=== PATIENT | female | born 1960 | race Caucasian/White ===

== ENCOUNTER → 2018-12-03 15:50 | Outpatient (CLI) | payer OTHER, SELFPAY ==
--- NOTE | 2018-12-03 | DI.US.S_ITS ---
PROCEDURE: US ABDOMEN LIMITED INDICATIONS: RIGHT UPPER QUADRANT PAIN TECHNIQUE: Real-time scanning was performed of the abdominal and retroperitoneal organs, with image documentation. COMPARISON: [facility], CT, ABDOMEN W&WO CONTRAST, 01/05/2016, 14:07. FINDINGS: Liver: The liver is 18 cm in length and demonstrates overall normal echotexture. Echogenic foci are present within the liver, the largest of which measures 3.1 x 1.5 x 3.9 cm, 1.1 x 1.6 x 1.1 cm, and 2.9 x 0.9 x 2.5 cm. The largest lesion has decreased from 4.7 x 2.8 x 3.5 cm on the comparison ultrasound from 2017. Gallbladder: Is surgically absent Biliary ducts: Intrahepatic bile ducts are non-dilated. Extrahepatic bile duct caliber measures 3.5 mm. Normal is 6-7 mm or less in diameter, or 10 mm or less post-cholecystectomy. Pancreas: Visualized portions of the pancreas are sonographically normal. IMPRESSION: 1. Echogenic hepatic foci, the largest of which is likely slightly decreased in size when compared with the prior ultrasound. Previous ultrasound and CT imaging to suggest the presence of multiple regions of focal hepatic fat. For definitive characterization, hepatic mass protocol MRI is recommended. Dictated by: Lizzy aJma M.D. on 12/03/2018 at 16:36 Approved by: Lizzy Jama M.D. on 12/04/2018 at 8:35
== END ==
PROVIDERS: PCP Family Medicine; Visit Provider Family Medicine
DX: R10.11 Right upper quadrant pain (principal)
CPT/HCPCS: 76705

== ENCOUNTER → 2018-12-20 11:09 | Outpatient (CLI) | payer OTHER, SELFPAY ==
--- NOTE | 2018-12-20 | DI.MRI.S_ITS ---
PROCEDURE: MR ABDOMEN WO/W CON INDICATIONS: LIVER MASS TECHNIQUE: Coronal HASTE, axial 2D FLASH in- and [id number]; axial breath-hold T2 FSE. Dynamic axial VIBE during the administration of contrast; post-contrast coronal VIBE or 2D FLASH with fat saturation from the hepatic dome to the iliac crests. Optional diffusion weighted imaging and ADC may be performed. COMPARISON: Abdominal ultrasound 12/03/2018. CT abdomen 01/05/2016. FINDINGS: Image quality: Excellent. Lung bases: No basal pleural effusions. Heart size is normal. Solid organs: Non-cirrhotic morphology. No suspicious hepatic lesion. Liver is normal in size and enhancement. Small areas of focal fatty infiltration in the left and right hepatic lobes, (4/23, 21). No significant diffuse steatosis. Gallbladder is surgically absent. Biliary system is non dilated. Pancreas is normal in morphology. No peripancreatic fluid collection. No pancreatic ductal dilatation. Spleen is normal in size and enhancement. No adrenal nodules. Both kidneys demonstrate normal size and enhancement, without hydronephrosis. No solid or enhancing mass. Nodes and vessels: No retroperitoneal or mesenteric adenopathy by size criteria. Aorta and inferior vena cava are normal in size. Bowel and peritoneum: Unenhanced bowel loops are normal in caliber. No free fluid. Bones and soft tissues: Fat-containing periumbilical hernia. Mild degenerative change in the lumbar spine. Bone marrow is normal in overall signal. IMPRESSION: 1. Echogenic foci is seen on prior ultrasound corresponds to small areas of focal fatty infiltration. No diffuse hepatic steatosis. 2. Non-cirrhotic morphology. No suspicious hepatic lesion. 3. Post cholecystectomy. Dictated by: Cordell Stanley M.D. on 12/20/2018 at 16:24 Approved by: Cordell Stanley M.D. on 12/20/2018 at 16:40
== END ==
PROVIDERS: PCP Family Medicine; Visit Provider Family Medicine
DX: R16.0 Hepatomegaly, not elsewhere classified (principal); K42.9 Umbilical hernia without obstruction or gangrene; Z90.49 Acquired absence of other specified parts of digestive tract; M47.816 Spondylosis without myelopathy or radiculopathy, lumbar region
CPT/HCPCS: 74183; A9579